=== PATIENT | female | born 1955 | race Caucasian/White ===

== ENCOUNTER 2019-10-26 20:22 | Inpatient (IN) ==
[2019-10-26] MEDS ORDERED: Acetaminophen 325 MG TABLET PO PRN (23:00)
[2019-10-26] MEDS ORDERED: Naloxone 0.4 MG/ML INJ IVP PRN (23:00)
[2019-10-26] MEDS ORDERED: Ondansetron 4 MG/2 ML VIAL IVP PRN (23:30)
[2019-10-26] MEDS ORDERED: Ondansetron 4 MG/2 ML VIAL ONE (23:31)
[2019-10-27] MEDS ORDERED: *HR* LORazepam 2 MG/ML VIAL IVP ONE (00:08)
[2019-10-27] MEDS ORDERED: *HR* Metoprolol 5 MG/5 ML VIAL IVP ONE ×2 (00:09→04:41)
[2019-10-27] MEDS: Piperacillin/Tazobactam 3.375 GM in 0.9 % Sodium Chloride Mini Bag 100 ML IVPB SCH ×3 (00:30→14:59)
[2019-10-27] MEDS: 0.9 % Sodium Chloride 1,000 ML IVC SCH ×3 (00:31→18:08)
[2019-10-27] MEDS: *HR* Heparin 5,000 UNIT/ML VIAL SQ SCH ×4 (00:54→22:06)
[2019-10-27 02:18] LABS: Basophils % 0.2 %; Hematocrit 40.2 % (35.3-44.9); Hemoglobin 13.1 g/dL (11.5-15.4); Immature Granulocytes % 0.9 % (0-4); Lymphocytes # 0.7 K/mcL (0.6-4.6); Lymphocytes % 3.2 %; Mean Corpuscular HGB Conc 32.6 g/dL (31.6-35.5); Mean Corpuscular Hemoglobin 29.8 pg (28.0-33.3); Mean Corpuscular Volume 91.4 fL (83.0-100.0); Mean Platelet Volume 9.3 fL (9.4-12.4); Monocytes # 1.1 K/mcL (0.0-1.3); Monocytes % 4.9 %; Neutrophils # 20.9 K/mcL (1.6-8.9); Platelet Count 203 K/mcL (140-400); Red Cell Distribution Width 15.8 % (11.5-14.5); Segmented Neutrophils % 90.8 %
[2019-10-27 02:40] LABS: Calcium 8.9 mg/dL (8.6-10.3); Chol/HDL Ratio 1.8 (0-4.9); Magnesium 1.7 mg/dL (1.6-2.6); Phosphorous 3.5 mg/dL (2.7-4.5); Potassium 3.9 mEq/L (3.5-5.1); Troponin I 0.03 ng/mL (< 0.04)
[2019-10-27 02:53] LABS: Thyroid Stimulating Hormone 1.877 mcIU/mL (0.340-5.600)
[2019-10-27 04:18] LABS: Amphetamine Screen,Urine Negative ng/mL (Cutoff=1000); Barbiturate Screen,Urine Negative ng/mL (Cutoff=200); Benzodiazepines Screen,Urine Negative ng/mL (Cutoff=200); Cannabinoid Screen,Urine Negative ng/mL (Cutoff = 50); Cocaine Screen,Urine Negative ng/mL (Cutoff= 300); Opiate Screen,Urine Negative ng/mL (Cutoff=300); Phencyclidine Screen,Urine Negative ng/mL (Cutoff=25)
[2019-10-27 04:20] LABS: Bacteria,Urine Few per hpf (None-Few); Bilirubin,Urine Negative (Negative); Blood,Urine Small (Negative); Clarity,Urine Clear (Clear); Color,Urine Colorless (Yellow); Glucose,Urine (UA) 100 mg/dL (Normal); Ketones,Urine 10 mg/dL (Negative); Leukocyte Esterase,Urine Negative (Negative); Mucus,Urine Few per lpf (None-Few); Nitrite,Urine Negative (Negative); PH,Urine 7.5 pH Units (5.0-8.0); Protein,Urine >=300 mg/dL (Neg-Trace); Specific Gravity,Urine 1.009 (1.010-1.025); Squamous Epithelial Cell,Urine Few per hpf (None-Few); Urobilinogen,Urine Normal (Normal); WBC,Urine 0-3 per hpf (0-3)
[2019-10-27 05:38] LABS: ABG Base Excess -5 mEq/L (-2 to 3); ABG HCO3 17 mEq/L (21-27); ABG Oxygen Saturation 96 % (95-98); ABG PCO2 25 mmHg (35-45); ABG PH 7.45 pH Units (7.32-7.45); ABG PO2 74 mmHg (85-104); ABG TCO2 18 mEq/L (20-26)
[2019-10-28] MEDS: Piperacillin/Tazobactam 3.375 GM in 0.9 % Sodium Chloride Mini Bag 100 ML IVPB SCH ×3 (01:04→16:06)
[2019-10-28 02:20] LABS: Protein/Creatinine Ratio,Urine 7.08 mg/mg (0.00-0.20)
[2019-10-28] MEDS: 0.9 % Sodium Chloride 1,000 ML IVC SCH ×3 (04:59→19:20)
[2019-10-28] MEDS: *HR* Heparin 5,000 UNIT/ML VIAL SQ SCH ×3 (05:53→20:07)
[2019-10-28 08:18] LABS: Basophils % 0.5 %; Eosinophils # 0.2 K/mcL (0.0-0.6); Eosinophils % 2.1 %; Hematocrit 29.7 % (35.3-44.9); Immature Granulocytes % 0.5 % (0-4); Lymphocytes # 1.2 K/mcL (0.6-4.6); Lymphocytes % 15.9 %; Mean Corpuscular Hemoglobin 30.1 pg (28.0-33.3); Mean Platelet Volume 10.1 fL (9.4-12.4); Monocytes # 0.6 K/mcL (0.0-1.3); Monocytes % 7.5 %; Neutrophils # 5.6 K/mcL (1.6-8.9); Platelet Count 115 K/mcL (140-400); Red Blood Count 3.16 M/mcL (3.82-4.97); Red Cell Distribution Width 15.9 % (11.5-14.5); Segmented Neutrophils % 73.5 %
[2019-10-28 08:20] LABS: Hemoglobin 9.5 g/dL (11.5-15.4); White Blood Count 7.6 K/mcL (4.3-11.1)
[2019-10-28 08:38] LABS: Calcium 7.8 mg/dL (8.6-10.3); Potassium 3.3 mEq/L (3.5-5.1)
[2019-10-28 14:21] LABS: Complement C3 115 mg/dL (87-200)
[2019-10-28 14:25] LABS: % Iron Saturation 15 % (15-50); Iron 56 mcg/dL (50-170); Transferrin 261 mg/dL (203-362)
[2019-10-28 14:42] LABS: Ferritin 138 ng/mL (10-120); Hepatitis B Surface Antigen Nonreactive (Nonreactive)
[2019-10-28 14:58] LABS: Basophils # 0.1 K/mcL (0.0-0.2); Basophils % 0.6 %; Eosinophils # 0.1 K/mcL (0.0-0.6); Eosinophils % 0.9 %; Hematocrit 35.8 % (35.3-44.9); Immature Granulocytes % 0.4 % (0-4); Lymphocytes # 0.7 K/mcL (0.6-4.6); Lymphocytes % 7.5 %; Mean Corpuscular Hemoglobin 29.1 pg (28.0-33.3); Mean Platelet Volume 9.8 fL (9.4-12.4); Monocytes # 0.8 K/mcL (0.0-1.3); Monocytes % 8.2 %; Neutrophils # 7.9 K/mcL (1.6-8.9); Platelet Count 148 K/mcL (140-400); Red Blood Count 3.81 M/mcL (3.82-4.97); Red Cell Distribution Width 16.1 % (11.5-14.5); Segmented Neutrophils % 82.4 %; White Blood Count 9.6 K/mcL (4.3-11.1)
[2019-10-28 15:00] LABS: Hemoglobin 11.1 g/dL (11.5-15.4)
[2019-10-28 15:11] LABS: Hepatitis B Core IgM Nonreactive (Nonreactive)
[2019-10-28 15:12] LABS: Hepatitis C Virus Antibody Nonreactive (Nonreactive)
[2019-10-28 15:13] LABS: Hepatitis A Antibody IgM Nonreactive (Nonreactive)
[2019-10-28] MEDS ORDERED: hydroCHLOROthiazide 25 MG TABLET PO SCH (16:00)
[2019-10-28] MEDS: *HR* Metoprolol 5 MG/5 ML VIAL IVP PRN (16:07)
[2019-10-28 17:18] LABS: C.difficile Toxin A/B Gene PCR Not detected (Not detect); Campylobacter by PCR Not detected (Not detect); Enteroaggregative E.coli(EAEC) Not detected (Not detect); Enteropathogenic E.coli(EPEC) Not detected (Not detect); Plesiomonas shigelloides PCR Not detected (Not detect); Salmonella PCR Not detected (Not detect); Vibrio PCR Not detected (Not detect); Vibrio cholerae PCR Not detected (Not detect); Yersinia enterocolitica PCR Not detected (Not detect)
[2019-10-28 17:19] LABS: Adenovirus F 40/41 PCR Not detected (Not detect); Astrovirus PCR Not detected (Not detect); Cryptosporidium by PCR Not detected (Not detect); Cyclospora cayetanensis PCR Not detected (Not detect); E. coli O157 by PCR Not detected (Not detect); Entamoeba histolytica PCR Not detected (Not detect); Enterotoxigenic E.coli (ETEC) Not detected (Not detect); Giardia lamblia PCR Not detected (Not detect); Norovirus GI/GII PCR Not detected (Not detect); Rotavirus A PCR Not detected (Not detect); Sapovirus PCR Not detected (Not detect); Shig/EnteroinvasiveE coli EIEC Not detected (Not detect); Shigalike tox-prod E coli STEC Not detected (Not detect)
[2019-10-28] MEDS: *HR* Promethazine 25 MG/ML VIAL IVP PRN (20:40)
[2019-10-29] MEDS: Piperacillin/Tazobactam 3.375 GM in 0.9 % Sodium Chloride Mini Bag 100 ML IVPB SCH ×3 (01:48→15:30)
[2019-10-29] MEDS: *HR* Heparin 5,000 UNIT/ML VIAL SQ SCH ×3 (06:27→20:27)
[2019-10-29] MEDS ORDERED: 0.9 % Sodium Chloride 1,000 ML ONE (08:39)
[2019-10-29] MEDS: 0.9 % Sodium Chloride 1,000 ML IVC SCH (09:26)
[2019-10-29] MEDS: amLODIPine 5 MG TABLET PO SCH (09:43)
[2019-10-29 09:54] LABS: Basophils # 0.1 K/mcL (0.0-0.2); Basophils % 0.7 %; Eosinophils # 0.2 K/mcL (0.0-0.6); Hematocrit 38.5 % (35.3-44.9); Hemoglobin 12.4 g/dL (11.5-15.4); Immature Granulocytes % 0.6 % (0-4); Lymphocytes # 1.2 K/mcL (0.6-4.6); Lymphocytes % 14.3 %; Mean Corpuscular HGB Conc 32.2 g/dL (31.6-35.5); Mean Corpuscular Hemoglobin 29.5 pg (28.0-33.3); Mean Corpuscular Volume 91.7 fL (83.0-100.0); Mean Platelet Volume 9.2 fL (9.4-12.4); Monocytes # 0.5 K/mcL (0.0-1.3); Monocytes % 6.6 %; Neutrophils # 6.1 K/mcL (1.6-8.9); Platelet Count 160 K/mcL (140-400); Red Cell Distribution Width 16.2 % (11.5-14.5); Segmented Neutrophils % 75.8 %
[2019-10-29 10:13] LABS: Magnesium 1.6 mg/dL (1.6-2.6); Phosphorous 3.2 mg/dL (2.7-4.5); Potassium 3.2 mEq/L (3.5-5.1); Uric Acid 4.5 mg/dL (2.3-7.6)
[2019-10-29] MEDS ORDERED: Potassium Chloride Elixir 20 MEQ/15 ML UDC PO ONE (10:24)
[2019-10-30] MEDS: Piperacillin/Tazobactam 3.375 GM in 0.9 % Sodium Chloride Mini Bag 100 ML IVPB SCH ×4 (01:09→23:33)
[2019-10-30] MEDS: *HR* Heparin 5,000 UNIT/ML VIAL SQ SCH ×3 (04:24→21:02)
[2019-10-30] MEDS: *HR* Promethazine 25 MG/ML VIAL IVP PRN (08:14)
[2019-10-30] MEDS: amLODIPine 5 MG TABLET PO SCH (08:16)
[2019-10-30 09:02] LABS: Calcium 9.2 mg/dL (8.6-10.3); Potassium 3.4 mEq/L (3.5-5.1)
[2019-10-30] MEDS: 0.9 % Sodium Chloride 1,000 ML IVC SCH (13:46)
[2019-10-30] MEDS: *HR* Metoprolol 5 MG/5 ML VIAL IVP PRN (13:54)
[2019-10-30 23:48] LABS: Kappa Qnt Free Light Chains 39.61 mg/L (3.30-19.40); Lambda Qnt Free Light Chains 33.14 mg/L (5.71-26.30)
[2019-10-31 02:42] LABS: Hematocrit 32.8 % (35.3-44.9)
[2019-10-31 02:43] LABS: Hemoglobin 10.3 g/dL (11.5-15.4)
[2019-10-31 02:58] LABS: Calcium 7.7 mg/dL (8.6-10.3); Potassium 3.4 mEq/L (3.5-5.1)
[2019-10-31] MEDS: *HR* Heparin 5,000 UNIT/ML VIAL SQ SCH ×3 (05:14→20:50)
[2019-10-31] MEDS: Piperacillin/Tazobactam 3.375 GM in 0.9 % Sodium Chloride Mini Bag 100 ML IVPB SCH ×3 (08:15→23:41)
[2019-10-31] MEDS: *HR* Metoprolol 5 MG/5 ML VIAL IVP PRN (08:15)
[2019-10-31] MEDS: amLODIPine 5 MG TABLET PO SCH (08:15)
[2019-10-31 08:42] LABS: ANA IgG by ELISA NONE DETECTED (None Detected); Serine Protease-3 Antibody 0 AU/mL (0-19)
[2019-10-31] MEDS: 0.9 % Sodium Chloride 1,000 ML IVC SCH (17:05)
[2019-10-31 22:46] LABS: Alpha 2 Globulin (PEP) 0.72 g/dL (0.48-1.05); Beta Globulin (PEP) 0.71 g/dL (0.48-1.10)
[2019-11-01 02:49] LABS: Basophils # 0.1 K/mcL (0.0-0.2); Basophils % 0.9 %; Eosinophils # 0.5 K/mcL (0.0-0.6); Eosinophils % 7.9 %; Hemoglobin 10.4 g/dL (11.5-15.4); Immature Granulocytes % 1.4 % (0-4); Lymphocytes # 1.6 K/mcL (0.6-4.6); Lymphocytes % 25.5 %; Mean Corpuscular HGB Conc 31.5 g/dL (31.6-35.5); Mean Corpuscular Hemoglobin 29.1 pg (28.0-33.3); Mean Corpuscular Volume 92.2 fL (83.0-100.0); Mean Platelet Volume 10.7 fL (9.4-12.4); Monocytes # 0.7 K/mcL (0.0-1.3); Monocytes % 11.5 %; Neutrophils # 3.4 K/mcL (1.6-8.9); Platelet Count 177 K/mcL (140-400); Red Blood Count 3.58 M/mcL (3.82-4.97); Red Cell Distribution Width 16.2 % (11.5-14.5); Segmented Neutrophils % 52.8 %; White Blood Count 6.4 K/mcL (4.3-11.1)
[2019-11-01 03:08] LABS: Calcium 7.9 mg/dL (8.6-10.3); Potassium 3.2 mEq/L (3.5-5.1)
[2019-11-01] MEDS: *HR* Heparin 5,000 UNIT/ML VIAL SQ SCH ×2 (05:15→13:39)
[2019-11-01] MEDS: amLODIPine 5 MG TABLET PO SCH (08:58)
[2019-11-01] MEDS: Piperacillin/Tazobactam 3.375 GM in 0.9 % Sodium Chloride Mini Bag 100 ML IVPB SCH (09:00)
[2019-11-01 09:40] LABS: IFE Reflexed NOT DONE
[2019-11-01 11:43] VITALS: BP 138/90
== END 2019-11-01 15:12 | disposition home or self-care (01) | DRG 871 ==
LOC: 2NENU → SUATTDRO 22:23 → 2ANU 10-30 18:35
PROVIDERS: ADMIT Internal Medicine; ATTEND Internal Medicine